=== PATIENT | male | born 1945 | race Caucasian/White ===

== ENCOUNTER 2016-11-04 09:48 | Observation (INO) | payer OTHER ==
--- NOTE | 2016-11-04 10:02 | CPEKG ---
Heart Rate: 58 RR Interval: 1034 P-R Interval: 164 QRSD Interval: 94 QT Interval: 424 QTC Interval: 417 P [place]: 15 QRS [place]: 67 T Wave [place]: -12 EKG Severity - BORDERLINE ECG - EKG Impression: SINUS RHYTHM EKG Impression: BORDERLINE T ABNORMALITIES, INFERIOR LEADS Electronically Signed By: Gregg Shah 04-Nov-2016 12:48:28
--- NOTE | 2016-11-04 10:06 | EDPHY ---
H & P Time Seen by Provider: 11/04/16 10:02 HPI/ROS: CHIEF COMPLAINT: Chest tightness HISTORY OF PRESENT ILLNESS: This 71-year-old man had coronary stenting in 2003. This was done in [place] by field service tech whose name he can' t remember. He is pretty active and installs hardwood floors. Yesterday he was racing go carts with his grandson and notice tightness in his chest lifting the cart off a trailer. He thought this was unusual but the symptoms resolved. He was awakened by similar type of chest tightness at 4:00 a.m. which lasted a half an hour and then occurred again just 15 minutes prior to arrival. On my evaluation symptoms are gone. Symptoms are always mild. Did not radiate. Not associated with nausea vomiting or diaphoresis. Exertional yesterday, but not today. REVIEW OF SYSTEMS: Eye: no change in vision ENT: no sore throat Cardiac: HPI Pulmonary: no cough or SOB Abdomen: no vomiting, diarrhea, abdominal pain Musculoskeletal: no back pain Skin: no rash Neuro: no headache Constitutional: no fever : no urinary symptoms A comprehensive 10 point review of systems is otherwise negative aside from elements mentioned in the history of present illness. PAST MEDICAL HISTORY: Coronary disease with stenting in 2003, hypertension and hyperlipidemia Social history: Lives in [place], primary care is Dr. Araya General Appearance: Alert and conversant, cooperative. Eyes: No scleral icterus. ENT, Mouth: Normal mucous membranes. Respiratory: Normal respiratory effort, breath sounds equal, lungs are clear to auscultation. Cardiovascular: Regular rate and rhythm. Gastrointestinal: Abdomen is soft and non tender. Neurological: Alert and oriented x3. Normally conversant. Face symmetric, normal movement and sensation in all extremities. Skin: Warm and dry, no rashes. Musculoskeletal: No peripheral edema and no joint swelling. Psychiatric: Not agitated. Emergency Department course/MDM: 1058: Results discussed including elevated troponin. Patient got oral aspirin. Plan for admission and cardiology consultation. 1120: Abida Sanchez, cardiology consult. Seen by Yaya in the emergency department, plan to go immediately to the catheterization lab for definitive intervention. Smoking Status: Never smoked Constitutional: Initial Vital Signs Temperature (C) 36.4 C 11/04/16 09:53 Heart Rate 61 11/04/16 09:53 Respiratory Rate 22 H 11/04/16 09:53 Blood Pressure 137/100 H 11/04/16 09:53 O2 Sat (%) 92 11/04/16 09:53 O2 Delivery Mode Nasal Cannula O2 (L/minute) 3 Allergies/Adverse Reactions: No Known Allergies Allergy (Unverified 11/04/16 09:52) Home Medications: Medication Instructions Recorded Aspirin [Aspirin 81mg (*)] 81 mg PO DAILY 11/04/16 Levothyroxine Sodium 50 mcg PO DAILY@0600 11/04/16 [Levothyroxine Sodium] Lisinopril [Lisinopril] 10 mg PO DAILY 11/04/16 Rosuvastatin Calcium [Rosuvastatin 40 mg PO DAILY 11/04/16 Calcium] Medical Decision Making - Diagnostics EKG Interpretation: 12-lead EKG interpreted by me; official reading is in trace master. My interpretation is sinus rhythm with nonspecific inferior T-wave abnormalities. Imaging Results: Imaging Impressions Chest X-Ray 11/04/16 10:06 Impression: Normal chest. Differential Diagnosis: Differential diagnosis considered for chest pain including but not limited to myocardial ischemia, aortic dissection, pericarditis, pulmonary embolus, chest wall pain, pleural inflammation and pulmonary infectious causes. Consult/Admit Bed Type: [place] [id number] - Data Points Laboratory Results: Laboratory Results 11/04/16 10:08 11/04/16 10:08 11/04/16 11/04/16 10:08 10:08 WBC 7.28 10^3/uL 10^3/uL (3.80-9.50) RBC 5.61 10^6/uL 10^6/uL (4.40-6.38) Hgb 17.0 g/dL g/dL (13.7-17.5) Hct 50.6 % % (40.0-51.0) MCV 90.2 fL fL (81.5-99.8) MCH 30.3 pg pg (27.9-34.1) MCHC 33.6 g/dL g/dL (32.4-36.7) RDW 12.3 % % (11.5-15.2) Plt Count 210 10^3/uL 10^3/uL (150-400) MPV 10.3 fL fL (8.7-11.7) Neut % (Auto) 54.1 % % (39.3-74.2) Lymph % (Auto) 33.4 % % (15.0-45.0) [place] % (Auto) 10.2 % % (4.5-13.0) Eos % (Auto) 1.5 % % (0.6-7.6) Baso % (Auto) 0.5 % % (0.3-1.7) Nucleat RBC Rel Count 0.0 % % (0.0-0.2) Absolute Neuts (auto) 3.94 10^3/uL 10^3/uL (1.70-6.50) Absolute Lymphs (auto) 2.43 10^3/uL 10^3/uL (1.00-3.00) Absolute Monos (auto) 0.74 10^3/uL 10^3/uL (0.30-0.80) Absolute Eos (auto) 0.11 10^3/uL 10^3/uL (0.03-0.40) Absolute Basos (auto) 0.04 10^3/uL 10^3/uL (0.02-0.10) Absolute Nucleated RBC 0.00 10^3/uL 10^3/uL (0-0.01) Immature Gran % 0.3 % % (0.0-1.1) Immature Gran # 0.02 10^3/uL 10^3/uL (0.00-0.10) Sodium 143 mEq/L mEq/L (134-144) Potassium 4.1 mEq/L mEq/L (3.5-5.2) Chloride 107 mEq/L mEq/L (97-110) Carbon Dioxide 24 mEq/l mEq/l (22-31) Anion Gap 12 mEq/L mEq/L (8-16) BUN 19 mg/dL mg/dL (7-23) Creatinine 1.0 mg/dL mg/dL (0.7-1.3) Estimated GFR > 60 Glucose 145 mg/dL H mg/dL (70-100) Calcium 9.1 mg/dL mg/dL (8.5-10.4) Troponin I 0.250 ng/mL H ng/mL (0-0.034) Medications Given: Discontinued Medications Aspirin (Aspirin) 324 mg PO EDNOW ONE Stop: 11/04/16 10:23 Last Admin: 11/04/16 10:20 Dose: 324 mg Departure - Departure Disposition: To OP Cath/Surgery Clinical Impression: Acute coronary syndrome Condition: Good
[2016-11-04] MEDS ORDERED: ASPIRIN 81 MG CHEWABLE TAB ONE (10:15)
[2016-11-04] MEDS ORDERED: ASPIRIN 81 MG CHEWABLE TAB PO ONE (10:22)
[2016-11-04 10:24] LABS: % IMMATURE GRANULYOCYTES 0.3 % (0.0-1.1); ABSOLUTE IMMATURE GRANULOCYTES 0.02 10^3/uL (0.00-0.10); ADD DIFF? NO; ADD MORPH? NO; ADD SCAN? NO; ATYPICAL LYMPHOCYTE FLAG 0 (0-99); FRAGMENT RBC FLAG 0 (0-99); HEMATOCRIT 50.6 % (40.0-51.0); LEFT SHIFT FLG 10 (0-99); LIPEMIA HEMOLYSIS FLAG 80 (0-99); MEAN CELL HEMOGLOBIN 30.3 pg (27.9-34.1); MEAN CELL HEMOGLOBIN CONCENTR. 33.6 g/dL (32.4-36.7); MEAN CELL VOLUME 90.2 fL (81.5-99.8); MEAN PLATELET VOLUME 10.3 fL (8.7-11.7); PLATELET CLUMPS FLAG 0 (0-99); PLATELET COUNT 210 10^3/uL (150-400); RED BLOOD CELL COUNT 5.61 10^6/uL (4.40-6.38); RED CELL DISTRIBUTION WIDTH 12.3 % (11.5-15.2)
[2016-11-04 10:41] LABS: ANION GAP 12 mEq/L (8-16); CALCIUM 9.1 mg/dL (8.5-10.4); CARBON DIOXIDE 24 mEq/l (22-31); CHLORIDE 107 mEq/L (97-110); GLOMERULAR FILTRATION RATE > 60; GLUCOSE 145 mg/dL (70-100); POTASSIUM 4.1 mEq/L (3.5-5.2); SODIUM 143 mEq/L (134-144)
[2016-11-04] MEDS ORDERED: LIDOCAINE 1% 30 ML SDV ONE (11:31)
[2016-11-04] MEDS ORDERED: fentaNYL 100 MCG/2 ML INJ ONE (11:32)
[2016-11-04] MEDS ORDERED: MIDAZOLAM 2 MG/2 ML VIAL ONE (11:32)
[2016-11-04] MEDS ORDERED: VERAPAMIL 5 MG/2 ML VIAL ONE (11:32)
[2016-11-04] MEDS ORDERED: HEPARIN 10,000 UNIT/10 ML MDV ONE (11:32)
[2016-11-04] MEDS ORDERED: IOPAMIDOL (ISOVUE-370) 150 ML BTL IV ONE (11:33)
[2016-11-04] MEDS ORDERED: diphenhydrAMINE 25 MG CAP PO ONE (11:41)
[2016-11-04] MEDS ORDERED: NITROGLYCERIN 0.4 MG BTL SL PRN (11:41)
[2016-11-04] MEDS ORDERED: ASPIRIN EC 325 MG TAB PO ONE (11:41)
[2016-11-04] MEDS ORDERED: DIAZEPAM 5 MG TAB PO ONE (11:41)
[2016-11-04] MEDS ORDERED: TEMAZEPAM 15 MG CAP PO PRN (11:41)
[2016-11-04] MEDS ORDERED: ACETAMINOPHEN 325 MG TAB PO PRN (11:41)
--- NOTE | 2016-11-04 12:33 | GCON ---
[f rep st] CONSULTATION CARDIOLOGY CONSULTATION REASON FOR CONSULTATION: We are asked by Dr. Shah of the emergency department to evaluate the patie nt for his chest pain. HISTORY OF PRESENT ILLNESS: The patient is a 71-year-old male with a known history of coronary balwinder ry disease, status post PTCA and stenting in 2003 to apparently the LAD, though I do not have record s on this. He has concomitant dyslipidemia, hypertension, hypothyroidism. He reports being in his usual state of health until Friday. He returned home with a feeling of chest tightness. He felt nauseated and could not eat dinner. The next day, he was back to his usual self. He went out with his grandson to ride in go-carts. He lifted the go-cart and noted a mid sternal chest tightness wit h radiation into the back. He denies any associated nausea, diaphoresis, or dyspnea. There was no radiation into his neck or arm. That evening, again, he felt a sensation of chest tightness and fee ling general malaise. This morning, he was at work and noted onset of recurrent symptoms. He, ilana santos, presented to our emergency department for further evaluation. Currently he is pain-free. Tr oponin was obtained and is elevated at 0.25. ECG also shows ST-T wave abnormalities. PAST MEDICAL HISTORY: 1. Hypertension. 2. CAD with likely PCI to LAD in 2003. 3. Dyslipidemia. 4. Hypothyroidism. PAST SURGICAL HISTORY: Appendectomy, cholecystectomy, tonsillectomy. OUTPATIENT MEDICATIONS: Include aspirin, Crestor, levothyroxine, lisinopril, Viagra, and Zetia. Me dications are yet to be reconciled. ALLERGIES: No known drug allergies. FAMILY HISTORY: No significant family history has been noted. SOCIAL HISTORY: Patient reports some day alcohol intake. He is and his is present in the room. He works full-time installing hardwood floors. He was a former smoker, quit in 2002. REVIEW OF SYSTEMS: As per HPI. A complete 10-point review of systems was obtained. He reports int ermittent cough related to particulate matter from his work. He had a flu about a month ago. PHYSICAL EXAMINATION: VITAL SIGNS: BP of 133/80, heart rate 58, respirations 18, O2 saturation 95% on 3 L. GENERAL: He is a very pleasant male in no apparent distress. HEENT: Eyes are EDMON[place]. Muc ous membranes moist. NECK: Supple with no JVD. HEART: Regular rate and rhythm. No rubs, gallops , or murmurs. LUNGS: Clear. ABDOMEN: Soft with normoactive bowel sounds. : With no Singh pre sent. SKIN: Warm and dry. PSYCH: Normal mood and affect. NEURO: No focal deficits. LABORATORY DATA: CBC with WBC 7.28, hemoglobin 17, hematocrit 50.6, platelet count 210. BMP with s odium 143, potassium 4.1, chloride 107, CO2 24, BUN 19, creatinine 1, glucose 145. Troponin 0.25. ECG personally interpreted, demonstrates sinus rhythm with diffuse ST-T wave abnormalities with ST e levations inferiorly with T-wave inversions. Chest x-ray demonstrates a normal chest. IMPRESSION AND PLAN: 1. The patient is a 71-year-old male, who presents with an acute coronary syndrome and symptoms sug gestive of impending myocardial infarction. Options were reviewed and patient was agreeable to proc eed to left heart catheterization for further evaluation. Risks, benefits, and alternatives reviewe d with him and his . She would be the surrogate decision maker. 2. Hypertension: Blood pressure medications will be continued in this admission. 3. Dyslipidemia: Statin therapy will be continued. 4. DVT prophylaxis, likely moderate to high risk. 5. Length of stay: We anticipate at least overnight stay in this admission. /[id number]/MODL
[2016-11-04] MEDS ORDERED: BIVALIRUDIN 250 MG/5 ML VIAL IV ONE (12:36)
[2016-11-04] MEDS ORDERED: CLOPIDOGREL BISULFATE 75 MG TAB ONE (13:01)
[2016-11-04] MEDS ORDERED: NITROGLYCERIN 1,500 MCG/15 ML VIAL MISC ONE (13:06)
[2016-11-04] MEDS ORDERED: EPTIFIBATIDE 200 MG/100 ML BOTTLE IV ONE (13:08)
[2016-11-04] MEDS ORDERED: EPTIFIBATIDE 20 MG/10 ML VIAL IVP ONE (13:08)
[2016-11-04] MEDS ORDERED: TICAGRELOR 90 MG TAB PO ONE ×2 (13:10→15:30)
[2016-11-04] MEDS ORDERED: PRASUGREL HCL 10 MG TAB PO ONE (13:32)
[2016-11-04] MEDS ORDERED: ATROPINE SULFATE 1 MG/10 ML SYR IVP PRN (13:32)
[2016-11-04] MEDS ORDERED: ONDANSETRON 4 MG/2 ML VIAL IVP PRN (13:32)
--- NOTE | 2016-11-04 13:40 | PDDXCAT ---
Diagnostic Cath Note - . Date: 11/04/16 [employer] Producer: Yaya - Procedure Access: left wrist Procedure: left heart catheterization, coronary angiography, left ventriculogram - Materials Left Heart Cath size: 5F Left Heart Cath materials: pigtail - Findings-Left Heart Catheterization LM: Unobstructed LAD: stent widely patent: Luminal irregularities not more than 10% LCX: unobstructed RCA: 99% occluded with HEATH grade 2 flow. Left to right collaterals EDP: 10 mm of mercury LVEF: 65 Wall motion: no regional wall motion abnormalities Complications: none Estimated blood loss: <50ml Closure method: TR Band Assessment: 1. Acute coronary syndrome with occlusion of the right coronary artery. 2. Normal left ventricular systolic function with normal filling pressures. 3. Patent LAD stent Plan: emergent PCI Intervention: after reviewing diagnostic angiograms elected to proceed with emergency PCI. Patient was anticoagulated with heparin. Therapeutic ACT was confirmed. Using a 6 [place] JR4 guiding catheter the right coronary selectively intubated. Using a 0.014 luge wire the RCA stenosis was crossed with a wire placed in the distal vessel. Pre dilatation was performed with a 2 mm balloon. A 3.0 x 38 mm synergy stent was placed on the wire positioned across the stenosis and deployed using a single inflation. The stent was post dilated with a 3.5 noncompliant balloon. Orthogonal angiograms with HEATH grade 3 flow. The stent was still undersized. Attempts at crossing with a 4 mm noncompliant balloon were made but failed. A 0.014 mailman wire was used as a opal. Stent was post dilated successfully. Patient was administered intracoronary nitroglycerin for reduced flow. Final orthogonal angiogram showed HEATH grade 3 flow with excellent clinical result. Conclusions: Acute coronary syndrome with occlusion of the RCA. Status post successful PCI and stenting. Patient be continued on aggressive medical therapy with clinical follow-up. Secondary prevention. Patient Problems: Problems Problem Status Onset Acute coronary syndrome Acute
[2016-11-04] MEDS ORDERED: NS 1,000 ML IV SCH (13:45)
--- NOTE | 2016-11-04 13:45 | CPEKG ---
Heart Rate: 44 RR Interval: 1364 P-R Interval: 180 QRSD Interval: 96 QT Interval: 472 QTC Interval: 404 P Gle[place]: 54 QRS [place]: 32 T Wave [place]: -28 EKG Severity - ABNORMAL ECG - EKG Impression: SINUS BRADYCARDIA EKG Impression: ABNORMAL T, CONSIDER ISCHEMIA, INFERIOR LEADS Electronically Signed By: Denny Doherty 05-Nov-2016 06:34:19
[2016-11-04] MEDS: LISINOPRIL 10 MG TAB PO SCH (20:01)
[2016-11-04] MEDS: ROSUVASTATIN CALCIUM 40 MG TAB PO SCH (20:02)
[2016-11-05 04:08] VITALS: O2SAT 93
[2016-11-05 04:27] LABS: % IMMATURE GRANULYOCYTES 0.2 % (0.0-1.1); ABSOLUTE IMMATURE GRANULOCYTES 0.02 10^3/uL (0.00-0.10); ADD DIFF? NO; ADD MORPH? NO; ADD SCAN? NO; ATYPICAL LYMPHOCYTE FLAG 0 (0-99); FRAGMENT RBC FLAG 0 (0-99); HEMATOCRIT 46.6 % (40.0-51.0); LEFT SHIFT FLG 10 (0-99); LIPEMIA HEMOLYSIS FLAG 90 (0-99); MEAN CELL HEMOGLOBIN 31.2 pg (27.9-34.1); MEAN CELL HEMOGLOBIN CONCENTR. 34.3 g/dL (32.4-36.7); MEAN CELL VOLUME 90.8 fL (81.5-99.8); MEAN PLATELET VOLUME 9.9 fL (8.7-11.7); PLATELET CLUMPS FLAG 0 (0-99); PLATELET COUNT 174 10^3/uL (150-400); RED BLOOD CELL COUNT 5.13 10^6/uL (4.40-6.38); RED CELL DISTRIBUTION WIDTH 12.4 % (11.5-15.2)
[2016-11-05 04:48] LABS: ALBUMIN 3.7 g/dL (3.5-5.0); ANION GAP 7 mEq/L (8-16); ASPARTATE AMINOTRANSFERASE 27 IU/L (17-59); CALCIUM 8.9 mg/dL (8.5-10.4); CARBON DIOXIDE 25 mEq/l (22-31); CHLORIDE 108 mEq/L (97-110); CREATININE 1.1 mg/dL (0.7-1.3); GLOMERULAR FILTRATION RATE > 60; GLUCOSE 89 mg/dL (70-100); LACTATE DEHYDROGENASE 449 IU/L (313-618); POTASSIUM 4.5 mEq/L (3.5-5.2); SODIUM 140 mEq/L (134-144)
[2016-11-05] MEDS ORDERED: LEVOTHYROXINE 50 MCG TAB PO SCH (06:00)
[2016-11-05] MEDS: LISINOPRIL 10 MG TAB PO SCH (07:59)
[2016-11-05] MEDS: ROSUVASTATIN CALCIUM 40 MG TAB PO SCH (07:59)
[2016-11-05 08:08] VITALS: BP 120/71; PULSE 54; RESP 18; TEMP 97.8
--- NOTE | 2016-11-05 08:57 | CPEKG ---
Heart Rate: 57 RR Interval: 1053 P-R Interval: 172 QRSD Interval: 90 QT Interval: 428 QTC Interval: 417 P [place]: 65 QRS Franklin: 30 T Wave Franklin: -58 EKG Severity - ABNORMAL ECG - EKG Impression: SINUS RHYTHM EKG Impression: ABNORMAL T, PROBABLE ISCHEMIA, INFERIOR LEADS Electronically Signed By: Denny Doherty 06-Nov-2016 09:07:28
[2016-11-05] MEDS ORDERED: PRASUGREL HCL 10 MG TAB PO SCH (09:00)
[2016-11-05] MEDS ORDERED: TICAGRELOR 90 MG TAB PO SCH (09:00)
[2016-11-05] MEDS ORDERED: ASPIRIN EC 81 MG TAB PO SCH (09:00)
[2016-11-05] MEDS ORDERED: ASPIRIN EC 325 MG TAB PO SCH (09:00)
[2016-11-05 09:25] LABS: CHOLESTEROL 114 mg/dL (140-220); CHOLESTEROL/HDL RATIO 4.07 RATIO (1.00-4.97); HIGH DENSITY LIPOPROTEIN 28 mg/dL (40-65); LDL/HDL RATIO 2.25 RATIO (1.00-3.64); LOW DENSITY LIPOPROTEIN 63 mg/dL (80-100); NON-HIGH DENSITY LIPOPROTEIN 86 mg/dL (90-129); TRIGLYCERIDE 118 mg/dL (40-150); VERY LOW DENSITY LIPOPROTEINS 23 mg/dL (8-25)
--- NOTE | 2016-11-05 14:01 | GDS ---
[f rep st] DISCHARGE SUMMARY DISCHARGE DIAGNOSES: 1. Acute coronary syndrome, status post percutaneous transluminal coronary angioplasty and stenting to the right coronary artery. 2. History of coronary artery disease with previous left artery descending stenting in 2003. 3. Dyslipidemia. 4. Hypertension. PROCEDURES: 1. 11/04/16, left heart catheterization which showed 99% occlusion of the right coronary artery wit h [id number] collaterals, left main that is unobstructed, widely patent left artery descending wi th minimal luminal irregularities. 2. Circumflex. Left circumflex is unobstructed. Left ventricular ejection fraction is 65%. Left ventricular end-diastolic pressure of 10 mmHg. 3. Percutaneous intervention of the right coronary artery using a 3.0 x 38 mm Synergy drug-eluting stent. BRIEF HISTORY: Please see dictated H and P for complete details. In brief, the patient is a 71-yea r-old male who presented to the emergency department with episodes of chest tightness starting over the weekend. He had elevated troponin and minimal ST elevation and T-wave inversions inferiorly. Gaby barnard was taken urgently to the cardiac catheterization laboratory and found to have the occluded right coronary artery. This was treated with PTCA and stenting. On day of discharge, patient denies any wrist or chest pain. He denies any shortness of breath. PHYSICAL EXAMINATION: VITAL SIGNS: On day of discharge, blood pressure of 120/71, heart rate 54, r espirations 18, O2 saturation 93% on 2 L/min. GENERAL: He is a very pleasant male in no apparent d istress. EYES: PERRL. Anicteric sclerae. HEART: Regular rate and rhythm. LUNGS: Clear. EXTRE MITIES: Left wrist site without ecchymosis or bruit. There is a full radial pulse present. LABORATORY DATA: CBC with WBC 9.31, hemoglobin 16, hematocrit 46.6, platelet count of 174. BMP wit h sodium 140, potassium 4.5, chloride 108, CO2 of 25, BUN 16, creatinine 1.1, glucose 89. Troponin 0.25 and 1.2. A total cholesterol 114, LDL cholesterol 63, HDL of 28, triglycerides 118. RESULTS PENDING: None. DIET: Cardiac diet reviewed. ACTIVITY: Wrist precautions were reviewed. DISCHARGE MEDICATIONS: Please see med reconciliation for complete details. He is being discharged on his home rosuvastatin, levothyroxine, lisinopril. He has been started on Brilinta 90 mg p.o. b.i .d. he is to continue his aspirin 81 mg p.o. daily. DISCHARGE INSTRUCTIONS: 1. Wrist precautions reviewed. 2. Continue Brilinta with 81 mg p.o. daily of aspirin. 3. Follow up with our office in 1-2 weeks' time. /[id number]/MODL
== END 2016-11-05 10:59 | disposition home or self-care (01) ==
LOC: INTOOBSV 11:03 → F2W 15:41
PROVIDERS: ADMIT Internal Medicine; ATTEND Internal Medicine Interventional Cardiology
PROC: 027034Z Dilation of Coronary Artery, One Artery with Drug-eluting Intraluminal Device, Percutaneous Approach (ICD-10-PCS; principal; 2016-11-04)
PROC: B2151ZZ Fluoroscopy of Left Heart using Low Osmolar Contrast (ICD-10-PCS; principal; 2016-11-04)
PROC: 4A023N7 Measurement of Cardiac Sampling and Pressure, Left Heart, Percutaneous Approach (ICD-10-PCS; principal; 2016-11-04)
PROC: B2111ZZ Fluoroscopy of Multiple Coronary Arteries using Low Osmolar Contrast (ICD-10-PCS; principal; 2016-11-04)
DX: I25.110 Atherosclerotic heart disease of native coronary artery with unstable angina pectoris (principal); Z95.5 Presence of coronary angioplasty implant and graft; E78.5 Hyperlipidemia, unspecified; I10 Essential (primary) hypertension; E03.9 Hypothyroidism, unspecified
CPT/HCPCS: 71020; 93005; 93458; C1725; C1769; C1874; C1887; C9600; G0378; J1644; J2250; J3010; Q9967; J0583; J1327

== ENCOUNTER → 2019-01-01 | Outpatient (CLI) | payer OTHER | LOC: GIMAGING 15:06 ==